=== PATIENT | male | born 1945 | race Caucasian/White ===

== ENCOUNTER 2025-05-15 09:43 | Emergency (ER) | payer OTHER, MEDICARE ==
[~2025-05-15] VITALS: Ht 185.4 cm; Wt 92.1 kg
[2025-05-15 09:46] VITALS: BP 134/74; TEMP 97.5; O2SAT 98
== END 2025-05-15 11:25 | disposition home or self-care (01) ==
LOC: M ED 09:43
DX: M16.12 Unilateral primary osteoarthritis, left hip (principal)